=== PATIENT | male | born 1990 | race Caucasian/White ===

== ENCOUNTER 2023-10-04 03:14 | Emergency (ER) | payer SELFPAY | END 2023-10-04 05:13 | disposition home or self-care (01) | LOC: ERS 03:14 | DX: S60.221A Contusion of right hand, initial encounter (principal); F17.210 Nicotine dependence, cigarettes, uncomplicated; W26.8XXA Contact with other sharp object(s), not elsewhere classified, initial encounter | CPT/HCPCS: 90471; 90715 ==